=== PATIENT | male | born 1950 | race Caucasian/White ===

== ENCOUNTER 2019-09-20 15:20 | Inpatient (IN) | payer MEDICARE ==
[~2019-09-20] VITALS: Ht 175.3 cm; Wt 73.6 kg
[~2019-09-20 15:20] MED LIST: DILT120C47 PO; WARF7.5T23 PO
[2019-09-20 15:46] LABS: BASOPHILS % (AUTO) 0.7 % (0.0-5.0); EOSINOPHILS % (AUTO) 3.3 % (0.0-8.0); HEMATOCRIT 37.2 % (42-54); LYMPHOCYTES % (AUTO) 21.7 % (21.0-51.0); MEAN CORPUSCULAR HEMOGLOBIN 26.5 pg (27.0-33.0); MEAN CORPUSCULAR HGB CONC 32.3 g/dL (32.0-36.0); MEAN CORPUSCULAR VOLUME 82.1 fL (79-99); MONOCYTES % (AUTO) 9.7 % (3.0-13.0); NEUTROPHILS % (AUTO) 64.4 % (40.0-77.0); PLATELET COUNT (AUTO) 224 K/uL (130-400); RED BLOOD CELL COUNT(AUTO) 4.53 MIL/uL (4.50-6.20); RED CELL DISTRIBUTION WIDTH 16.3 % (11.0-15.5); WHITE BLOOD COUNT (AUTO) 8.1 K/uL (4.8-10.8)
[2019-09-20 15:56] LABS: CREATININE 0.9 mg/dL (0.5-1.5); POTASSIUM 3.9 mmol/L (3.5-5.1)
[2019-09-20 16:01] LABS: ALBUMIN 3.4 g/dL (3.5-5.0); BILIRUBIN,TOTAL 1.2 mg/dL (0.2-1.0); TOTAL PROTEIN, SERUM 7.5 g/dL (6.0-8.3)
[2019-09-20 16:10] LABS: CREATINE KINASE, TOTAL 100 U/L (21-232); MYOGLOBIN 29 ng/mL (10-92); TROPONIN I < 0.04 ng/mL (0.00-0.06)
[2019-09-20 16:12] LABS: B-TYPE NATRIURETIC PEPTIDE 683 pg/mL (0-100)
[2019-09-20] MEDS ORDERED: DILTIAZEM HCL 5 MG/ML 5 ML VIAL IVP ONE (18:26)
[2019-09-20] MEDS ORDERED: ACETAMINOPHEN 325 MG TAB PO PRN (19:15)
[2019-09-20] MEDS ORDERED: ONDANSETRON HCL 4 MG/2 ML VIAL IV PRN (19:15)
[2019-09-20] MEDS ORDERED: IOHEXOL-350 75 ML VIAL IV ONE (19:24)
[2019-09-20] MEDS ORDERED: DILTIAZEM HCL 125 MG/25 ML VIAL IV ONE (19:37)
[2019-09-20] MEDS ORDERED: SODIUM CHLORIDE 0.9% 100 ML IV ONE (19:38)
[2019-09-20 20:01] LABS: ABG HCO3 21.7 mmol/L (21.0-28.0); ABG OXYGEN SATURATION 95.5 % (95.0-99.0); ABG PCO2 28 mmHg (35-48)
[2019-09-20] MEDS ORDERED: FAMOTIDINE 20MG TAB 20 MG TAB PO SCH (21:00)
[2019-09-20 21:10] LABS: INR 2.74 (0.85-1.15); PARTIAL THROMBOPLASTIN TIME 36.6 SEC (26.3-35.5); PROTHROMBIN TIME 27.7 SEC (9.6-11.6)
[2019-09-20] MEDS ORDERED: METO-408 PO (22:02)
[2019-09-20] MEDS ORDERED: WARF4TAB8 PO (22:02)
[2019-09-20 22:11] VITALS: BP 143/94
[2019-09-20] MEDS ORDERED: IPRATROPIUM 0.5 MG/2.5 ML INH IH ONE (22:51)
[2019-09-20] MEDS ORDERED: SODIUM CHLORIDE 3% FOR INHALATION 4 ML/AMP VIAL.NEB IH ONE (22:53)
[2019-09-20] MEDS: IPRATROPIUM 0.5 MG/2.5 ML INH IH SCH (22:55)
[2019-09-20 23:34] LABS: APPEARANCE,URINE Clear (CLEAR); BILIRUBIN,URINE Negative (NEGATIVE); COLOR,URINE Yellow (YELLOW); GLUCOSE, URINE (UA) Negative (NEGATIVE); KETONES,URINE Negative (NEGATIVE); LEUKOCYTE ESTERASE ,URINE Negative (NEGATIVE); NITRATE,URINE Negative (NEGATIVE); OCCULT BLOOD,URINE Negative (NEGATIVE); PH,URINE 5.5 (5.0-8.0); PROTEIN,URINE POS 1+ mg/dL (NEGATIVE)
[2019-09-21] VITALS (8 sets, daily range): BP systolic 111–136; BP diastolic 65–99
[2019-09-21 00:45] LABS: AMPHET/METH SCREEN,URINE NEGATIVE (NEGATIVE); BARBITURATE SCREEN, URINE NEGATIVE (NEGATIVE); BENZODIAZEPINES SCREEN,URINE NEGATIVE (NEGATIVE); CANNABINOID SCREEN,URINE POSITIVE (NEGATIVE); COCAINE SCREEN,URINE NEGATIVE (NEGATIVE); OPIATE SCREEN,URINE NEGATIVE (NEGATIVE); PHENCYCLIDINE SCREEN,URINE NEGATIVE (NEGATIVE)
[2019-09-21 04:39] LABS: BASOPHILS % (AUTO) 0.6 % (0.0-5.0); EOSINOPHILS % (AUTO) 4.1 % (0.0-8.0); HEMATOCRIT 36.1 % (42-54); LYMPHOCYTES % (AUTO) 30.4 % (21.0-51.0); MEAN CORPUSCULAR HEMOGLOBIN 26.4 pg (27.0-33.0); MEAN CORPUSCULAR HGB CONC 31.9 g/dL (32.0-36.0); MEAN CORPUSCULAR VOLUME 82.8 fL (79-99); NEUTROPHILS % (AUTO) 53.7 % (40.0-77.0); PLATELET COUNT (AUTO) 210 K/uL (130-400); RED BLOOD CELL COUNT(AUTO) 4.36 MIL/uL (4.50-6.20); RED CELL DISTRIBUTION WIDTH 16.4 % (11.0-15.5); WHITE BLOOD COUNT (AUTO) 6.6 K/uL (4.8-10.8)
[2019-09-21 04:53] LABS: CREATININE 1.9 mg/dL (0.5-1.5); POTASSIUM 3.6 mmol/L (3.5-5.1)
[2019-09-21] MEDS ORDERED: SODIUM CHLORIDE 3% FOR INHALATION 4 ML/AMP VIAL.NEB IH ONE (06:01)
[2019-09-21] MEDS: IPRATROPIUM 0.5 MG/2.5 ML INH IH SCH ×4 (06:53→23:20)
[2019-09-21] MEDS: DILTIAZEM HCL 125 MG/25 ML 125 MG in SODIUM CHLORIDE 0.9% 100 ML IV SCH (07:08)
--- NOTE | 2019-09-21 07:44 | NUR ---
Alejandra LUJAN, [employer], IN ROOM SPEAKING WITH PT. RE:PLAN OF CARE. QUESTIONS ANSWERED BY [employer], PT. VERBALIZED UNDERSTANDING.
[2019-09-21] MEDS: METOPROLOL TARTRATE 25 MG TAB PO SCH ×2 (08:14→19:40)
[2019-09-21] MEDS: FAMOTIDINE/PF 20 MG/2 ML VIAL IV SCH ×2 (08:15→19:39)
[2019-09-21] MEDS ORDERED: ENOXAPARIN SODIUM 30 MG/0.3 ML SQ SCH (09:00)
--- NOTE | 2019-09-21 09:05 | NUR ---
TO STRESS TEST BY EMS.
[2019-09-21] MEDS: REGADENOSON 0.4 MG/5 ML PF SYG IVP SCH ×2 (10:00→11:52)
[2019-09-21] MEDS ORDERED: REGADENOSON 0.4 MG/5 ML PF SYG IVP ONE (10:01)
--- NOTE | 2019-09-21 12:00 | NUR ---
PT RECEIVED FROM EMS PER TRANSPORT STRETCHER AT 0935. PT TRANSFERRED TO WHEELCHAIR WITH MINIMAL ASSIST, NO C/O DISCOMFORT AT THIS TIME. STRESS TESTING PROCEDURES COMPLETED AT 1055 WITHOUT INCIDENT. EMS DISPATCH CONTACTED FOR RETURN TRANSPORT TO [facility] [place] [facility] 10 MIN PRIOR TO COMPLETION OF SCANNING, AT 1045. PT RETURNED TO [facility] [place] [facility] PER EMS TRANSPORT AT 1200.
--- NOTE | 2019-09-21 12:06 | NUR ---
BRIAN PLAN VISITED WITH PATIENT. PATIENT AT [facility] GETTING STRESS TEST. [facility] WILL CONTINUE TO FOLLOW. Addendum: 09/21/19 at 1206 by DIDIER MUSA RN CM Amended: Links added.
--- NOTE | 2019-09-21 12:15 | NUR ---
RETURNED TO ROOM VIA EMS. AAOX3, RESP.'S EVEN AND UNLABORED. DENIES ANY C/O SOB, DENIES ANY C/O PAIN. DENIES ANY PALPITATIONS. CALL LIGHT WITHIN REACH, VERBALIZED ABILITY TO USE.
--- NOTE | 2019-09-21 12:24 | NUR ---
DR. MOISE IN ROOM SPEAKING WITH PT. RE:PLAN OF CARE AND MEDICATION REGIMEN. QUESTIONS ANSWERED BY DR. MOISE.
--- NOTE | 2019-09-21 13:13 | NUR ---
RECEIVED CALL FROM WERNER ROE TRAFFIC RATE COMPUTER AT [facility]. STATES RESTING PART OF STRESS TEST MUST BE DONE TOMORROW SINCE THE PATIENT RECEIVED A FULL DOSE OF LEXISCAN FOR STRESS PART OF EXAM TODAY.
[2019-09-21 13:17] LABS: CREATININE 0.9 mg/dL (0.5-1.5); POTASSIUM 3.7 mmol/L (3.5-5.1)
[2019-09-21 14:04] LABS: CREATININE,URINE RANDOM 144 mg/dL (30-135); SODIUM,URINE RANDOM 123 mmol/l (40-220)
[2019-09-21] MEDS: FUROSEMIDE 10 MG/ML 2ML VIAL IV SCH (16:36)
[2019-09-21] MEDS: DILTIAZEM HCL 120 MG CAP.SR.24H PO SCH (19:40)
--- NOTE | 2019-09-21 20:00 | NUR ---
PT AFIB 98, CONTINUES ON CARDIZEM DRIP AT 10ML/HR. ABLE TO AMBULATE WITH ASSISTANCE. EXERTIONAL SOB. NASAL CANNULA AT 2LPM. PT STATES NO CONCERNS AT THIS TIME.
[2019-09-22] VITALS: BP 130/87
[2019-09-22] MEDS: DILTIAZEM HCL 125 MG/25 ML 125 MG in SODIUM CHLORIDE 0.9% 100 ML IV SCH (00:46)
[2019-09-22 04:00] VITALS: BP 120/76
[2019-09-22 04:03] LABS: BASOPHILS % (AUTO) 0.4 % (0.0-5.0); EOSINOPHILS % (AUTO) 3.4 % (0.0-8.0); HEMATOCRIT 35.5 % (42-54); LYMPHOCYTES % (AUTO) 24.7 % (21.0-51.0); MEAN CORPUSCULAR HEMOGLOBIN 25.9 pg (27.0-33.0); MEAN CORPUSCULAR HGB CONC 31.5 g/dL (32.0-36.0); MONOCYTES % (AUTO) 11.6 % (3.0-13.0); NEUTROPHILS % (AUTO) 59.5 % (40.0-77.0); PLATELET COUNT (AUTO) 209 K/uL (130-400); RED BLOOD CELL COUNT(AUTO) 4.33 MIL/uL (4.50-6.20); RED CELL DISTRIBUTION WIDTH 16.4 % (11.0-15.5)
[2019-09-22 04:19] LABS: B-TYPE NATRIURETIC PEPTIDE 500 pg/mL (0-100)
[2019-09-22 04:21] LABS: CREATININE 0.9 mg/dL (0.5-1.5); POTASSIUM 3.3 mmol/L (3.5-5.1)
[2019-09-22] MEDS ORDERED: POTASSIUM CHLORIDE 20MEQ/100ML 100 ML IV PRN (04:45)
[2019-09-22] MEDS ORDERED: LIDOCAINE HCL-MPF 1% 2ML VIAL IV PRN (04:45)
[2019-09-22] MEDS ORDERED: POTASSIUM CHLORIDE 10% ELIXIR 20 MEQ/15 ML UDCUP PO PRN (04:45)
[2019-09-22] MEDS: IPRATROPIUM 0.5 MG/2.5 ML INH IH SCH ×4 (06:07→23:13)
[2019-09-22] MEDS: POTASSIUM CHLORIDE 20 MEQ ERTAB PO PRN ×3 (06:16→17:33)
[2019-09-22 07:30] VITALS: BP 127/91
[2019-09-22] MEDS: FUROSEMIDE 10 MG/ML 2ML VIAL IV SCH ×3 (08:21→17:11)
[2019-09-22] MEDS: METOPROLOL TARTRATE 25 MG TAB PO SCH ×3 (08:21→19:19)
[2019-09-22] MEDS: FAMOTIDINE/PF 20 MG/2 ML VIAL IV SCH ×2 (08:21→19:19)
[2019-09-22] MEDS: ACETAMINOPHEN 325 MG TAB PO PRN ×2 (10:31→15:07)
--- NOTE | 2019-09-22 10:57 | NUR ---
DC PLAN VISITED WITH PATIENT. PATIENT LIVES ALONE. INDEPENDENT ABLE TO PERFORM ADL'S. PATIENT HAS NO SERVICES OR DME'S. FEELS SAFE TO RETURN HOME. PATIENT HAS A WALKER FROM PREVIOUS KNEE SURGERY. Addendum: 09/22/19 at 1059 by DIDIER MUSA RN CM Amended: Links added.
[2019-09-22 11:30] VITALS: BP 122/65
[2019-09-22 15:00] VITALS: BP 137/80
[2019-09-22] MEDS ORDERED: WARFARIN SODIUM 2 MG TAB PO SCH (16:00)
[2019-09-22 19:00] LABS: HEMATOCRIT 37.2 % (42-54); MEAN CORPUSCULAR HEMOGLOBIN 26.2 pg (27.0-33.0); MEAN CORPUSCULAR VOLUME 81.9 fL (79-99); PLATELET COUNT (AUTO) 234 K/uL (130-400); RED BLOOD CELL COUNT(AUTO) 4.54 MIL/uL (4.50-6.20); RED CELL DISTRIBUTION WIDTH 16.5 % (11.0-15.5); WHITE BLOOD COUNT (AUTO) 8.8 K/uL (4.8-10.8)
[2019-09-22 19:09] LABS: CREATININE 1.2 mg/dL (0.5-1.5); POTASSIUM 3.6 mmol/L (3.5-5.1)
[2019-09-22] MEDS: DILTIAZEM HCL 120 MG CAP.SR.24H PO SCH (19:19)
[2019-09-22 19:33] LABS: INR 1.63 (0.85-1.15); PARTIAL THROMBOPLASTIN TIME 31.6 SEC (26.3-35.5); PROTHROMBIN TIME 16.8 SEC (9.6-11.6)
[2019-09-22 19:54] LABS: B-TYPE NATRIURETIC PEPTIDE 1030 pg/mL (0-100)
[2019-09-22 19:59] VITALS: BP 148/87
[2019-09-23] VITALS (9 sets, daily range): BP systolic 122–147; BP diastolic 69–95
[2019-09-23] MEDS: FUROSEMIDE 10 MG/ML 2ML VIAL IV SCH ×3 (00:37→08:00)
--- NOTE | 2019-09-23 00:45 | NUR ---
PT AT THIS TIME REFUSED LASIX, STATED DR. ROBERSON NOTIFIED HIM THAT HE WOULD HOLD THE LASIX DUE TO KIDNEY FUNCTION AND POSSIBLE LHC. WILL VERIFY THIS IN THE AM. DID NOT ADMINISTER LASIX DOSE.
[2019-09-23 04:27] LABS: BASOPHILS % (AUTO) 0.4 % (0.0-5.0); EOSINOPHILS % (AUTO) 3.7 % (0.0-8.0); HEMATOCRIT 36.8 % (42-54); LYMPHOCYTES % (AUTO) 35.9 % (21.0-51.0); MEAN CORPUSCULAR HEMOGLOBIN 26.2 pg (27.0-33.0); MEAN CORPUSCULAR HGB CONC 32.1 g/dL (32.0-36.0); MEAN CORPUSCULAR VOLUME 81.6 fL (79-99); MONOCYTES % (AUTO) 10.8 % (3.0-13.0); NEUTROPHILS % (AUTO) 48.6 % (40.0-77.0); PLATELET COUNT (AUTO) 196 K/uL (130-400); RED BLOOD CELL COUNT(AUTO) 4.51 MIL/uL (4.50-6.20); RED CELL DISTRIBUTION WIDTH 16.3 % (11.0-15.5)
[2019-09-23 04:41] LABS: MAGNESIUM 1.7 mg/dL (1.80-2.40); PHOSPHORUS 3.7 mg/dL (2.5-4.9); POTASSIUM 3.8 mmol/L (3.5-5.1)
[2019-09-23 04:47] LABS: INR 1.55 (0.85-1.15)
[2019-09-23 04:50] LABS: B-TYPE NATRIURETIC PEPTIDE 763 pg/mL (0-100)
[2019-09-23] MEDS: IPRATROPIUM 0.5 MG/2.5 ML INH IH SCH ×4 (05:13→23:23)
--- NOTE | 2019-09-23 06:17 | NUR ---
PREPPED FOR LHC. PT AWAKE. STATES NO PAIN.
[2019-09-23] MEDS ORDERED: NICARDIPINE HCL 25 MG/10 ML ML IV ONE (07:29)
[2019-09-23] MEDS ORDERED: IOHEXOL 350 MG/ML 100ML INFUS..BTL IV ONE (07:29)
[2019-09-23] MEDS ORDERED: NITROGLYCERIN 5 MG/ML 10 ML VIAL IV ONE (07:29)
[2019-09-23] MEDS ORDERED: IOHEXOL-350 75 ML VIAL IV ONE (07:29)
[2019-09-23] MEDS ORDERED: HEPARIN SODIUM 1000UNIT/ML 10ML VIAL ONE (07:29)
[2019-09-23] MEDS ORDERED: LIDOCAINE HCL 2% 20ML ONE (07:30)
[2019-09-23] MEDS ORDERED: FENTANYL CITRATE PF 50 MCG/1 ML 2ML VIAL ONE (07:30)
[2019-09-23] MEDS ORDERED: MIDAZOLAM HCL 1 MG/ML 2ML VIAL ONE (07:30)
[2019-09-23] MEDS ORDERED: BIVALIRUDIN 250 MG/VIAL IV ONE (08:30)
[2019-09-23] MEDS ORDERED: SODIUM CHLORIDE 0.9% 1000ML 1,000 ML IV ONE (10:13)
[2019-09-23] MEDS: LEVOFLOXACIN 500 MG/D5W 100 ML 100 ML IV SCH (10:16)
[2019-09-23] MEDS: FAMOTIDINE/PF 20 MG/2 ML VIAL IV SCH ×2 (10:16→20:23)
[2019-09-23] MEDS: METOPROLOL TARTRATE 25 MG TAB PO SCH ×3 (10:21→20:24)
[2019-09-23] MEDS: LIDOCAINE 5% TOPICAL PATCH TP SCH (12:00)
[2019-09-23] MEDS: ACETAMINOPHEN 325 MG TAB PO PRN ×2 (14:21→18:32)
[2019-09-23] MEDS ORDERED: FUROSEMIDE 10 MG/ML 2ML VIAL IV SCH (14:45)
[2019-09-23] MEDS ORDERED: MAGNESIUM 2GM PREMIX 50ML 50 ML IV SCH (15:45)
[2019-09-23] MEDS: DILTIAZEM HCL 120 MG CAP.SR.24H PO SCH (20:24)
[2019-09-23] MEDS: ACETAMINOPHEN-CODEINE 300/30MG TAB PO PRN (20:25)
[2019-09-23] MEDS ORDERED: GUAIFENESIN-DM 200/20 MG 10 ML ONE (20:39)
--- NOTE | 2019-09-23 21:00 | NUR ---
PT C/O CONTINUOUS PAIN TO RIGHT SHOULDER. SERVANDO CORDERO SHIPYARD HELPER PAGED NEW ORDER FOR TYLENOL #3 1TAB Q6HR PRN.
[2019-09-24] VITALS (7 sets, daily range): BP systolic 122–138; BP diastolic 63–86
--- NOTE | 2019-09-24 | NUR ---
PT C/O DIFFICULTY SLEEPING. PAGED SERVANDO SOTELO NET DEVELOPER. NEW ORDER FOR RESTORIL 7.5MG X1 DOSE.
[2019-09-24] MEDS ORDERED: TEMAZEPAM 7.5 MG CAPSULE PO ONE ×2 (00:30→00:32)
[2019-09-24 04:38] LABS: BASOPHILS % (AUTO) 0.7 % (0.0-5.0); EOSINOPHILS % (AUTO) 3.9 % (0.0-8.0); LYMPHOCYTES % (AUTO) 30.3 % (21.0-51.0); MEAN CORPUSCULAR HEMOGLOBIN 26.1 pg (27.0-33.0); MEAN CORPUSCULAR HGB CONC 31.5 g/dL (32.0-36.0); MEAN CORPUSCULAR VOLUME 82.6 fL (79-99); NEUTROPHILS % (AUTO) 53.7 % (40.0-77.0); PLATELET COUNT (AUTO) 203 K/uL (130-400); RED BLOOD CELL COUNT(AUTO) 4.72 MIL/uL (4.50-6.20); RED CELL DISTRIBUTION WIDTH 16.4 % (11.0-15.5); WHITE BLOOD COUNT (AUTO) 7.2 K/uL (4.8-10.8)
[2019-09-24 04:51] LABS: CARBON DIOXIDE 24 mmol/L (21-32); CHLORIDE 105 mmol/L (101-111); GLOMERULAR FILTR. RATE CALC 79 mL/min (>60); GLUCOSE,RANDOM 98 mg/dL (70-105); INR 1.66 (0.85-1.15); PARTIAL THROMBOPLASTIN TIME 31.5 SEC (26.3-35.5); PHOSPHORUS 3.5 mg/dL (2.5-4.9); POTASSIUM 3.7 mmol/L (3.5-5.1); PROTHROMBIN TIME 17.1 SEC (9.6-11.6); SODIUM SERUM 140 mmol/L (136-145); UREA NITROGEN, BLOOD 14 mg/dL (7-18)
[2019-09-24 04:53] LABS: B-TYPE NATRIURETIC PEPTIDE 886 pg/mL (0-100)
[2019-09-24] MEDS: IPRATROPIUM 0.5 MG/2.5 ML INH IH SCH ×3 (06:51→18:58)
[2019-09-24] MEDS: LEVOFLOXACIN 500 MG/D5W 100 ML 100 ML IV SCH (08:51)
[2019-09-24] MEDS: FAMOTIDINE/PF 20 MG/2 ML VIAL IV SCH ×2 (08:51→21:26)
[2019-09-24] MEDS: METOPROLOL TARTRATE 25 MG TAB PO SCH ×3 (08:51→21:25)
[2019-09-24] MEDS: LACTULOSE 20 GM/30 ML UDCUP PO PRN (08:51)
[2019-09-24] MEDS: LIDOCAINE 5% TOPICAL PATCH TP SCH (08:51)
[2019-09-24] MEDS: ACETAMINOPHEN-CODEINE 300/30MG TAB PO PRN ×2 (08:59→18:23)
[2019-09-24] MEDS ORDERED: DIPHENHYDRAMINE HCL 25 MG CAPSULE PO PRN (09:45)
[2019-09-24] MEDS: CEFEPIME HCL 1 GM VIAL IVP SCH ×2 (14:39→21:25)
[2019-09-24] MEDS ORDERED: IOHEXOL-350 75 ML VIAL IV ONE (15:09)
[2019-09-24] MEDS ORDERED: IOHEXOL 350 MG/ML 100ML INFUS..BTL IV ONE (15:16)
[2019-09-24] MEDS ORDERED: SODIUM CHLORIDE 0.9% 1000ML 1,000 ML IV SCH (16:45)
--- NOTE | 2019-09-24 17:02 | NUR ---
REPORTED CT ANGIO CHEST RESULTS TO HARMONY LEACH PA-C. HE WILL FOLLOW UP IN AM.
[2019-09-24] MEDS ORDERED: TEMAZEPAM 15 MG CAPSULE PO SCH (21:00)
[2019-09-24] MEDS: DILTIAZEM HCL 120 MG CAP.SR.24H PO SCH (21:25)
[2019-09-25] VITALS (8 sets, daily range): BP systolic 108–124; BP diastolic 72–94
[2019-09-25 03:33] LABS: BASOPHILS % (AUTO) 0.3 % (0.0-5.0); EOSINOPHILS % (AUTO) 6.3 % (0.0-8.0); HEMATOCRIT 37.4 % (42-54); LYMPHOCYTES % (AUTO) 31.4 % (21.0-51.0); MEAN CORPUSCULAR HEMOGLOBIN 25.8 pg (27.0-33.0); MEAN CORPUSCULAR HGB CONC 30.7 g/dL (32.0-36.0); MEAN CORPUSCULAR VOLUME 83.9 fL (79-99); MONOCYTES % (AUTO) 11.5 % (3.0-13.0); NEUTROPHILS % (AUTO) 50.2 % (40.0-77.0); PLATELET COUNT (AUTO) 179 K/uL (130-400); RED BLOOD CELL COUNT(AUTO) 4.46 MIL/uL (4.50-6.20); RED CELL DISTRIBUTION WIDTH 16.7 % (11.0-15.5); WHITE BLOOD COUNT (AUTO) 5.9 K/uL (4.8-10.8)
[2019-09-25 04:19] LABS: CREATININE 0.9 mg/dL (0.5-1.5); POTASSIUM 3.8 mmol/L (3.5-5.1)
[2019-09-25] MEDS: CEFEPIME HCL 1 GM VIAL IVP SCH ×3 (05:58→21:37)
[2019-09-25] MEDS: IPRATROPIUM 0.5 MG/2.5 ML INH IH SCH ×5 (06:13→18:59)
[2019-09-25] MEDS: LIDOCAINE 5% TOPICAL PATCH TP SCH (07:57)
[2019-09-25] MEDS: ACETAMINOPHEN-CODEINE 300/30MG TAB PO PRN ×2 (07:58→15:38)
[2019-09-25] MEDS: METOPROLOL TARTRATE 25 MG TAB PO SCH (07:58)
[2019-09-25] MEDS: FAMOTIDINE/PF 20 MG/2 ML VIAL IV SCH ×2 (07:59→21:36)
[2019-09-25] MEDS: LACTULOSE 20 GM/30 ML UDCUP PO PRN (08:05)
--- NOTE | 2019-09-25 09:15 | NUR ---
DR. Lu ROBERSON IN ROOM SPEAKING WITH PT. RE:PLAN OF CARE. QUESTIONS ANSWERED BY DR. ROBERSON.
--- NOTE | 2019-09-25 10:05 | NUR ---
DR. Jeremie PARKS IN ROOM SPEAKING WITH PT. RE:PLAN OF CARE. QUESTIONS ADDRESSED BY DR. PARKS, PT. VERBALIZED UNDERSTANDING.
[2019-09-25] MEDS: METOPROLOL TARTRATE 50 MG TAB PO SCH ×2 (14:17→21:36)
[2019-09-25] MEDS ORDERED: TEMAZEPAM 7.5 MG CAPSULE PO ONE ×2 (21:30→21:35)
[2019-09-26 06:15] VITALS: BP 143/85
[2019-09-26] MEDS: CEFEPIME HCL 1 GM VIAL IVP SCH ×3 (06:19→20:44)
[2019-09-26] MEDS: IPRATROPIUM 0.5 MG/2.5 ML INH IH SCH ×5 (06:53→23:45)
[2019-09-26 07:30] VITALS: BP 131/81
[2019-09-26] MEDS: LACTULOSE 20 GM/30 ML UDCUP PO PRN (08:12)
[2019-09-26] MEDS: LIDOCAINE 5% TOPICAL PATCH TP SCH (08:13)
[2019-09-26] MEDS: FAMOTIDINE/PF 20 MG/2 ML VIAL IV SCH ×2 (08:13→20:44)
[2019-09-26] MEDS: METOPROLOL TARTRATE 50 MG TAB PO SCH ×3 (08:13→20:44)
--- NOTE | 2019-09-26 10:39 | NUR ---
DR. Lu ROBERSON IN ROOM SPEAKING WITH PT. RE:PLAN OF CARE. QUESTIONS ANSWERED BY DR. ROBERSON.
[2019-09-26 11:00] VITALS: BP 127/83
--- NOTE | 2019-09-26 12:25 | NUR ---
DR. CHANEL IN ROOM SPEAKING WITH PT. Re:PLAN OF CARE AND NEED FOR HOME O2, PT. VERBALIZED UNDERSTANDING.
[2019-09-26] MEDS: ACETAMINOPHEN-CODEINE 300/30MG TAB PO PRN (12:41)
[2019-09-26 15:00] VITALS: BP 114/83
--- NOTE | 2019-09-26 15:50 | NUR ---
D/C PLAN CM spoke to pt regarding [employer] life vest and home o2 needs. CM offered choices for DME agencies. Obtained consent for [facility] and [employer] life [facility]. CM pending signature from MD for home o2. CM faxed referral to [employer]. CM also offered short term snf/rehab as possible d/c option. Pt declined. Plan to home. CM to f/u.
[2019-09-26 18:48] VITALS: BP 131/78
--- NOTE | 2019-09-26 19:45 | NUR ---
assessment assumed care. sitting in bedside chair. no distress noted. unlabored respirations. denies pain & discomfort at this time. on droplet precautions. instructed on infection control and isolation precautions. instructed on plan of care. full assessment documented. tele monitoring. atrial fibrillation with cvr hr 90. call light within reach. instructed to call for assistance.
[2019-09-26] MEDS ORDERED: TEMAZEPAM 7.5 MG CAPSULE PO PRN (21:00)
[2019-09-26 23:08] VITALS: BP 119/74
[2019-09-27 03:16] VITALS: BP 113/78
[2019-09-27] MEDS: CEFEPIME HCL 1 GM VIAL IVP SCH ×2 (05:52→13:12)
[2019-09-27] MEDS: IPRATROPIUM 0.5 MG/2.5 ML INH IH SCH ×2 (06:59→11:40)
[2019-09-27 07:30] VITALS: BP 126/81
[2019-09-27] MEDS: FAMOTIDINE/PF 20 MG/2 ML VIAL IV SCH (08:27)
[2019-09-27] MEDS: METOPROLOL TARTRATE 50 MG TAB PO SCH ×2 (08:41→13:12)
[2019-09-27] MEDS: LIDOCAINE 5% TOPICAL PATCH TP SCH (08:42)
[2019-09-27] MEDS: ACETAMINOPHEN-CODEINE 300/30MG TAB PO PRN (08:46)
[2019-09-27] MEDS ORDERED: FAMOTIDINE 20MG TAB 20 MG TAB PO SCH (09:00)
--- NOTE | 2019-09-27 10:26 | NUR ---
DR. Jeremie ROBIN IN ROOM SPEAKING WITH PT.
[2019-09-27] MEDS ORDERED: ATOR10 PO (10:41)
[2019-09-27] MEDS ORDERED: METO-391 PO (10:41)
[2019-09-27 11:40] VITALS: BP 125/85
--- NOTE | 2019-09-27 13:13 | NUR ---
DC VINAYAK SPOKE TO BRENNAN WITH [facility] STRESS TEST. EMAILED TO [facility] CHANEL SIGNED FORMS FOR . SENT INFO TO [facility] PATIENT. [facility] WILL CONTINUE TO FOLLOW. Addendum: 09/27/19 at 1317 by DIDIER MUSA RN CM Amended: Links added.
[2019-09-27 15:00] VITALS: BP 141/89
[2019-09-27] MEDS ORDERED: LEVOFLOXACIN 500 MG TABLET PO SCH (15:00)
--- NOTE | 2019-09-27 15:07 | NUR ---
RECEIVED CALL FROM [facility] SALES SERVICE PROFESSIONAL. WILL BE IN TO FIT PT. WITH [employer].
[2019-09-27 16:33] VITALS: BP 141/89
--- NOTE | 2019-09-27 18:43 | NUR ---
DISCHARGED HOME VIA W/C WITH [facility] AND [employer] IN PLACE. ACCOMPANIED BY THIS NURSE AND PT.'S FRIENDS.
[2019-09-28] MEDS ORDERED: LOSARTAN 50 MG TABLET PO SCH (09:00)
== END 2019-09-27 18:45 | disposition home or self-care (01) | DRG 286 ==
LOC: EDH 15:20 → EDHIP 19:08 → 2AH 21:45
PROVIDERS: ADMIT Family Medicine; ATTEND Family Medicine
PROC: B3101ZZ Fluoroscopy of Thoracic Aorta using Low Osmolar Contrast (ICD-10-PCS; principal; 2019-09-23)
PROC: B2111ZZ Fluoroscopy of Multiple Coronary Arteries using Low Osmolar Contrast (ICD-10-PCS; 2019-09-23)
PROC: B2151ZZ Fluoroscopy of Left Heart using Low Osmolar Contrast (ICD-10-PCS; 2019-09-23)
PROC: 4A023N7 Measurement of Cardiac Sampling and Pressure, Left Heart, Percutaneous Approach (ICD-10-PCS; 2019-09-23)
DX: I11.0 Hypertensive heart disease with heart failure (principal); J96.01 Acute respiratory failure with hypoxia; J15.1 Pneumonia due to Pseudomonas; J98.11 Atelectasis; J44.0 Chronic obstructive pulmonary disease with (acute) lower respiratory infection; J44.1 Chronic obstructive pulmonary disease with (acute) exacerbation; K81.0 Acute cholecystitis; I50.23 Acute on chronic systolic (congestive) heart failure; I71.2 Thoracic aortic aneurysm, without rupture; E78.5 Hyperlipidemia, unspecified; F12.90 Cannabis use, unspecified, uncomplicated; G89.29 Other chronic pain; I25.10 Atherosclerotic heart disease of native coronary artery without angina pectoris; I34.0 Nonrheumatic mitral (valve) insufficiency; I48.0 Paroxysmal atrial fibrillation; T36.8X5A Adverse effect of other systemic antibiotics, initial encounter; I25.2 Old myocardial infarction; Z79.01 Long term (current) use of anticoagulants; Z86.79 Personal history of other diseases of the circulatory system; Z87.891 Personal history of nicotine dependence; Z95.1 Presence of aortocoronary bypass graft; Y92.89 Other specified places as the place of occurrence of the external cause; Z82.49 Family history of ischemic heart disease and other diseases of the circulatory system; Z80.9 Family history of malignant neoplasm, unspecified
CPT/HCPCS: 36415; 36600; 71045; 71046; 71275; 78451; 78452; 80048; 80053; 80305; 81003; 82550; 82570; 82803; 82948; 83735; 83874; 83880; 84100; 84145; 84300; 84484; 85025; 85027; 85378; 85610; 85730; 87071; 87077; 87186; 87205; 93005; 93017; 93306; 93458; 93567; 94640; 94664; 94760; 96374; 99156; 99157; 99291; A9500; C1760; C1769; C1894; G0378; J0583; J0692; J1644; J1940; J1956; J2250; J2785; J3010; J3475; J3490; J7030; Q0163; Q9967

== ENCOUNTER 2020-03-08 07:16 | Observation (INO) | payer MEDICARE ==
[2020-03-08] VITALS (12 sets, daily range): BP systolic 94–125; BP diastolic 58–82
[~2020-03-08] VITALS: Ht 172.7 cm; Wt 74.1 kg
[~2020-03-08 07:16] MED LIST changes: +ATOR10 PO; -DILT120C47 PO; +FURO40TA5 PO; +LOSA25TA41 PO; +METO-391 PO; +POTA10CA44 PO; +QUET25TA74 PO; +WARF4TAB8 PO; -WARF7.5T23 PO
[2020-03-08 07:42] LABS: BASOPHILS % (AUTO) 0.8 % (0.0-5.0); EOSINOPHILS % (AUTO) 6.2 % (0.0-8.0); HEMATOCRIT 43.1 % (42-54); LYMPHOCYTES % (AUTO) 31.6 % (21.0-51.0); MEAN CORPUSCULAR HEMOGLOBIN 28.8 pg (27.0-33.0); MEAN CORPUSCULAR HGB CONC 32.7 g/dL (32.0-36.0); MONOCYTES % (AUTO) 13.6 % (3.0-13.0); NEUTROPHILS % (AUTO) 47.1 % (40.0-77.0); PLATELET COUNT (AUTO) 152 K/uL (130-400); RED CELL DISTRIBUTION WIDTH 17.6 % (11.0-15.5); WHITE BLOOD COUNT (AUTO) 7.3 K/uL (4.8-10.8)
[2020-03-08] MEDS: CEFAZOLIN SODIUM 1 GM VIAL IVP SCH (07:45)
[2020-03-08 07:54] LABS: CREATININE 0.9 mg/dL (0.5-1.5); POTASSIUM 3.8 mmol/L (3.5-5.1)
[2020-03-08 07:55] LABS: INR 1.05 (0.85-1.15); PARTIAL THROMBOPLASTIN TIME 28.2 SEC (26.3-35.5); PROTHROMBIN TIME 11.3 SEC (9.6-11.6)
[2020-03-08] MEDS ORDERED: SODIUM CHLORIDE 0.9% 1000ML 1,000 ML IV ONE (08:50)
[2020-03-08] MEDS ORDERED: MEPERIDINE-PF 50 MG/ML SYG ONE (10:54)
[2020-03-08] MEDS ORDERED: CEFAZOLIN SODIUM 1 GM VIAL ONE (10:54)
[2020-03-08] MEDS ORDERED: LIDOCAINE HCL 1% MDV 50ML VIAL ONE (10:54)
[2020-03-08] MEDS ORDERED: BUPIVACAINE/PF 0.25% 30ML VIAL IJ ONE (10:54)
[2020-03-08] MEDS ORDERED: MIDAZOLAM HCL 1 MG/ML 2ML VIAL ONE ×3 (10:54→12:00)
[2020-03-08] MEDS ORDERED: IOHEXOL-350 75 ML VIAL IV ONE (10:54)
[2020-03-08] MEDS ORDERED: MEPERIDINE-PF 25 MG/ML SYG ONE ×3 (11:44→12:56)
--- NOTE | 2020-03-08 13:55 | NUR ---
ADMISSION ARRIVED TO UNIT FROM [facility]. S/P BI-V PACEMAKER PLACEMENT TO LEFT CHEST. PROCEDURE DONE BY DR RODRIGUEZ. LEFT CHEST AREA APPEARS DRESSING APPEARS DRY AND INTACT, NO REDNESS OR SWELLING NOTED TO SITE. PATIENT IS NOT C/O PAIN AT THIS TIME. AAXO4. HAS ARM SLING TO LEFT ARM. NO SIGNS OF DISTRESS NOTED.
[2020-03-08] MEDS ORDERED: ACETAMINOPHEN-CODEINE 300/30MG TAB ONE (15:22)
[2020-03-08] MEDS: ACETAMINOPHEN-CODEINE 300/30MG TAB PO PRN ×2 (15:23→21:23)
[2020-03-08] MEDS ORDERED: WARFARIN SODIUM 2 MG TAB PO SCH (16:00)
--- NOTE | 2020-03-08 20:00 | NUR ---
POST-OP WOUND CHECK PACEMAKER SITE TO LEFT UPPER CHEST, SLING IN PLACE TO LEFT UPPER EXTREMITY. GAUZE OBSERVED TO INCISION SITE, DRY AND INTACT, NO DRAINAGE NOTED. SLIGHT SWELLING OBSERVED, SKIN AROUND GAUZE SITE OBSERVED PINK, NO BRUISING OBSERVED AT THIS TIME. PT C/O SORENESS TO SITE, NO PAIN. INSTRUCTED TO MAINTAIN SLING ON AT ALL TIMES. WILL CONTINUE TO MONITOR SITE PER MD ORDER. Addendum: 03/09/20 at 0052 by HEATHER DELGADILLO RN Amended: Links added.
[2020-03-08] MEDS ORDERED: ATORVASTATIN CALCIUM 20 MG TABLET PO SCH (21:00)
[2020-03-08] MEDS ORDERED: QUETIAPINE FUMARATE 25 MG TAB PO SCH (21:00)
[2020-03-08] MEDS ORDERED: LOSARTAN 50 MG TABLET PO SCH (21:00)
[2020-03-08] MEDS ORDERED: METOPROLOL SUCCINATE 50 MG TAB.SR.24H PO SCH (21:00)
[2020-03-08] MEDS: FUROSEMIDE 40 MG TABLET PO SCH (21:19)
--- NOTE | 2020-03-09 | NUR ---
POST-OP WOUND CHECK PACEMAKER SITE TO LEFT UPPER CHEST GAUZE/TEGADERM OBSERVED DRY AND INTACT, NO DRAINAGE NOTED. SLIGHT SWELLING OBSERVED, SKIN AROUND GAUZE/TEGADERM SITE OBSERVED PINK, NO BRUISING OBSERVED AT THIS TIME. SLING IN PLACE TO LEFT UPPER EXTREMITY, INSTRUCTED TO MAINTAIN SLING ON AT ALL TIMES. WILL CONTINUE TO MONITOR SITE PER MD ORDER. Addendum: 03/09/20 at 0054 by HEATHER DELGADILLO RN Amended: Links added.
[2020-03-09 03:52] VITALS: BP 109/72
[2020-03-09] MEDS: CEFAZOLIN SODIUM 1 GM VIAL IVP SCH (03:59)
--- NOTE | 2020-03-09 04:00 | NUR ---
POST-OP WOUND CHECK PACEMAKER SITE TO LEFT UPPER CHEST GAUZE/TEGADERM OBSERVED DRY AND INTACT, NO DRAINAGE NOTED. SLIGHT SWELLING OBSERVED, NO BRUISING OBSERVED AT THIS TIME. SLING IN PLACE TO LEFT UPPER EXTREMITY, INSTRUCTED TO MAINTAIN SLING ON AT ALL TIMES. WILL CONTINUE TO MONITOR SITE PER MD ORDER.
[2020-03-09 08:08] LABS: HEMATOCRIT 42.3 % (42-54); MEAN CORPUSCULAR HEMOGLOBIN 29.3 pg (27.0-33.0); MEAN CORPUSCULAR HGB CONC 33.6 g/dL (32.0-36.0); MEAN CORPUSCULAR VOLUME 87.2 fL (79-99); PLATELET COUNT (AUTO) 143 K/uL (130-400); RED BLOOD CELL COUNT(AUTO) 4.85 MIL/uL (4.50-6.20); RED CELL DISTRIBUTION WIDTH 17.3 % (11.0-15.5)
[2020-03-09] MEDS: FUROSEMIDE 40 MG TABLET PO SCH (08:30)
[2020-03-09 08:31] LABS: CREATININE 0.9 mg/dL (0.5-1.5); POTASSIUM 3.7 mmol/L (3.5-5.1)
[2020-03-09 08:44] LABS: EOSINOPHILS % (MANUAL) 4 % (1-6); LYMPHOCYTES % (MANUAL) 33 % (22-44); MAN.DIFF COMMENT-IMPRESSION MANUAL DIFFERENTIAL; MONOCYTES % (MANUAL) 11 % (2-9); PLATELET MORPHOLOGY COMMENT ADEQUATE; SEGMENTED NEUTROPHILS % 52 % (40-70)
[2020-03-09 08:59] VITALS: BP 134/81
[2020-03-09] MEDS ORDERED: POTASSIUM CHLORIDE 10 MEQ/TAB.SA PO SCH (09:00)
[2020-03-09 12:10] VITALS: BP 109/65
--- NOTE | 2020-03-09 14:43 | NUR ---
DISCHARGE DISCHARGE INSTRUCTIONS GIVEN TO PATIENT, VERBALIZED UNDERSTANDING. EDUCATED PATIENT ON PACEMAKER SITE CARE. INFORMED OF SCHEDULED APPOINTMENT FOR DR RODRIGUEZ ON 03/20 AT 1:30PM. IV DISCONTINUED. TELEPAK REMOVED.
--- NOTE | 2020-03-09 15:44 | NUR ---
423 patient signed WALL Letter, I faxed WALL Letter to [phone] and placed in chart under consent tab.
== END 2020-03-09 14:45 | disposition home or self-care (01) ==
LOC: DAH 07:16 → CLH 07:16 → DAHIP 07:17 → 4DH 15:54
PROVIDERS: ADMIT Internal Medicine; ATTEND Internal Medicine
DX: I11.0 Hypertensive heart disease with heart failure (principal); I50.22 Chronic systolic (congestive) heart failure; I48.21 Permanent atrial fibrillation; E78.5 Hyperlipidemia, unspecified; E11.9 Type 2 diabetes mellitus without complications; G30.9 Alzheimer's disease, unspecified; F02.80 Dementia in other diseases classified elsewhere, unspecified severity, without behavioral disturbance, psychotic disturbance, mood disturbance, and anxiety; J44.9 Chronic obstructive pulmonary disease, unspecified; Z79.01 Long term (current) use of anticoagulants; Z95.810 Presence of automatic (implantable) cardiac defibrillator; I71.4 Abdominal aortic aneurysm, without rupture; I25.5 Ischemic cardiomyopathy; I25.10 Atherosclerotic heart disease of native coronary artery without angina pectoris
CPT/HCPCS: 33225; 33249; 36415 ×2; 71045; 80048 ×2; 85025 ×2; 85610; 85730; A4215; A4216; A4221; A4222; A4223 ×3; A4606; A4663; C1769; C1882; C1895; C1900; G0378 ×18; J0690; J2175 ×4; J2250 ×3; J3490 ×2; J7030; Q9967; 99156; 99157

== ENCOUNTER → 2020-05-23 | Outpatient (CLI) | payer MEDICARE ==
[~2020-05-23] MED LIST changes: +IOHEXOL 350 MG/ML 100ML INFUS..BTL IV ONE
== END | disposition home or self-care (01) ==
LOC: RAH 07:57
PROVIDERS: ATTEND Internal Medicine Cardiovascular Disease
DX: I71.2 Thoracic aortic aneurysm, without rupture (principal); I51.3 Intracardiac thrombosis, not elsewhere classified; I71.4 Abdominal aortic aneurysm, without rupture
CPT/HCPCS: 71275; 74174; Q9967

== ENCOUNTER 2020-08-15 14:35 | Emergency (ER) | payer MEDICARE ==
[~2020-08-15 14:35] MED LIST changes: +DIGO250T73 PO; -IOHEXOL 350 MG/ML 100ML INFUS..BTL IV ONE; +NITR0.4T50 SL; -POTA10CA44 PO; -QUET25TA74 PO; +SACU1TAB PO
[2020-08-15] MEDS ORDERED: MORPHINE SULFATE 4 MG/1ML SYG ONE (14:57)
[2020-08-15] MEDS ORDERED: ONDANSETRON HCL 4 MG/2 ML VIAL ONE (14:57)
[2020-08-15] MEDS ORDERED: SODIUM CHLORIDE 0.9% 1000ML 1,000 ML IV ONE (14:58)
[2020-08-15 15:02] LABS: BASOPHILS % (AUTO) 0.5 % (0.0-5.0); EOSINOPHILS % (AUTO) 2.9 % (0.0-8.0); HEMATOCRIT 43.2 % (42-54); LYMPHOCYTES % (AUTO) 32.3 % (21.0-51.0); MEAN CORPUSCULAR HEMOGLOBIN 31.7 pg (27.0-33.0); MEAN CORPUSCULAR HGB CONC 35.2 g/dL (32.0-36.0); NEUTROPHILS % (AUTO) 52.8 % (40.0-77.0); PLATELET COUNT (AUTO) 199 K/uL (130-400); RED CELL DISTRIBUTION WIDTH 12.2 % (11.0-15.5); WHITE BLOOD COUNT (AUTO) 11.1 K/uL (4.8-10.8)
[2020-08-15 15:17] LABS: ALBUMIN 3.3 g/dL (3.5-5.0); BILIRUBIN,TOTAL 0.9 mg/dL (0.2-1.0); CREATININE 1.2 mg/dL (0.5-1.5); TOTAL PROTEIN, SERUM 7.7 g/dL (6.0-8.3)
[2020-08-15 15:18] LABS: INR 1.55 (0.85-1.15); PARTIAL THROMBOPLASTIN TIME 31.7 SEC (26.3-35.5); POTASSIUM 2.9 mmol/L (3.5-5.1); PROTHROMBIN TIME 16.5 SEC (9.6-11.6)
[2020-08-15 15:22] LABS: CREATINE KINASE, TOTAL 55 U/L (21-232); MYOGLOBIN 45 ng/mL (10-92); TROPONIN I < 0.04 ng/mL (0.00-0.06)
[2020-08-15] MEDS ORDERED: IOHEXOL 350 MG/ML 100ML INFUS..BTL IV ONE (15:54)
[2020-08-15] MEDS ORDERED: POTASSIUM CHLORIDE 20 MEQ ERTAB PO ONE (16:33)
[2020-08-15] MEDS ORDERED: POTASSIUM CHLORIDE 20MEQ/100ML 100 ML IV ONE (16:33)
[2020-08-15] MEDS ORDERED: LIDOCAINE HCL-MPF 1% 2ML VIAL ONE (16:50)
[2020-08-15 17:53] LABS: APPEARANCE,URINE Clear (CLEAR); BILIRUBIN,URINE Negative (NEGATIVE); COLOR,URINE Yellow (YELLOW); GLUCOSE, URINE (UA) Negative (NEGATIVE); KETONES,URINE Negative (NEGATIVE); LEUKOCYTE ESTERASE ,URINE Negative (NEGATIVE); NITRATE,URINE Negative (NEGATIVE); OCCULT BLOOD,URINE Negative (NEGATIVE); PROTEIN,URINE Negative (NEGATIVE)
== END 2020-08-15 19:29 | disposition home or self-care (01) ==
LOC: EDH 14:35
DX: I71.2 Thoracic aortic aneurysm, without rupture (principal); M54.5 Low back pain; R10.13 Epigastric pain; R10.12 Left upper quadrant pain; I10 Essential (primary) hypertension; J44.9 Chronic obstructive pulmonary disease, unspecified; I48.91 Unspecified atrial fibrillation; Z95.1 Presence of aortocoronary bypass graft
CPT/HCPCS: 36415; 71045; 71275; 74174; 80053; 81003; 82150; 82550; 83690; 83874; 84484; 85025; 85610; 85730; 93005; 96365; 96366; 96375; 99285; J2270; J2405; J3480; J3490; J7030; Q9967